=== PATIENT | female | born 1975 | race Two or more races ===

== ENCOUNTER → 2020-08-27 | Outpatient (CLI) | payer OTHER | END | disposition home or self-care (01) | LOC: CFH 12:33 | PROVIDERS: ATTEND Obstetrics & Gynecology | DX: Z12.39 Encounter for other screening for malignant neoplasm of breast (principal); Z12.31 Encounter for screening mammogram for malignant neoplasm of breast | CPT/HCPCS: 76641; 77063; 77067 ==

== ENCOUNTER → 2020-12-11 | Outpatient (CLI) | payer OTHER ==
[~2020-12-11] MED LIST: ASCO1TAB15 PO
[2020-12-11 09:31] LABS: BASOPHILS % (AUTO) 1 % (0-1); EOSINOPHILS % (AUTO) 4 % (1-7); LYMPHOCYTES % (AUTO) 22 % (22-44); MEAN CORPUSCULAR HEMOGLOBIN 28.4 pg (27.0-34.8); MEAN CORPUSCULAR HGB CONC 33.8 g/dL (32.4-35.8); MEAN PLATELET VOLUME 7.9 fL (7.4-10.4); MONOCYTES % (AUTO) 9 % (2-9); NEUTROPHILS % (AUTO) 65 % (42-75); PLATELET COUNT 315 x10^3/uL (130-400); RED CELL DISTRIBUTION WIDTH 13.9 % (9.6-15.2)
[2020-12-11 09:32] LABS: MD NO
[2020-12-11 09:34] LABS: MICROSCOPIC NOT IND
[2020-12-11 09:41] LABS: ALANINE AMINOTRANSFERASE 31 U/L (12-78); ALBUMIN 3.6 g/dL (3.4-5.0); ANION GAP 3 mmol/L (5-15); CALCIUM 8.7 mg/dL (8.5-10.1); CHLORIDE 110 mmol/L (98-107); CREATININE 0.65 mg/dL (0.55-1.02)
[2020-12-11 09:46] LABS: ALKALINE PHOSPHATASE 59 U/L (45-117); BILIRUBIN,TOTAL 0.3 mg/dL (0.2-1.0); TOTAL PROTEIN 7.5 g/dL (6.4-8.2)
== END | disposition home or self-care (01) ==
LOC: STAR 08:35
PROVIDERS: ATTEND Obstetrics & Gynecology
DX: Z01.812 Encounter for preprocedural laboratory examination (principal); N93.9 Abnormal uterine and vaginal bleeding, unspecified; D25.9 Leiomyoma of uterus, unspecified; Z20.822 Contact with and (suspected) exposure to COVID-19
CPT/HCPCS: 36415; 80053; 81003; 84702; 85025; U0003

== ENCOUNTER 2020-12-17 08:37 | Day surgery (SDC) | payer OTHER ==
[~2020-12-17] VITALS: Ht 167.6 cm; Wt 94.8 kg
[~2020-12-17 08:37] MED LIST changes: +BUPIVACAINE/PF 0.25% ONE; +FLUORESCEIN SODIUM 500 MG/5 ML ONE
[2020-12-17 09:21] VITALS: BP 147/94
[2020-12-17 09:28] LABS: HCG UR SG 1.011 (1.003-1.030)
[2020-12-17] MEDS ORDERED: PROMETHAZINE 25 MG/ML, 1ML IVPush PRN (09:30)
[2020-12-17] MEDS ORDERED: ONDANSETRON 2MG/ML, 2ML IVPush PRN (09:30)
[2020-12-17] MEDS ORDERED: HYDROcodone/APAP 7.5-325MG/15ML UDC PO PRN (09:30)
[2020-12-17] MEDS ORDERED: FENTANYL PF 100 MCG/2ML IV PRN (09:30)
[2020-12-17] MEDS ORDERED: LACTATED RINGERS 1,000 ML IV SCH (09:30)
[2020-12-17] MEDS ORDERED: CHLORHEXIDINE 15 ML UDC PO ONE (09:30)
[2020-12-17] MEDS ORDERED: MEPERIDINE/PF 25MG/0.5ML IVPush PRN (09:30)
[2020-12-17] MEDS ORDERED: HYDROmorphone 1 MG/ML, 1ML INJ IVPush PRN (09:30)
[2020-12-17] MEDS ORDERED: OXYcodone 5 MG/5 ML ORAL.SOL UDC PO PRN (09:30)
[2020-12-17] MEDS ORDERED: SCOPOLAMINE 1MG PATCH TD ONE (09:41)
[2020-12-17] MEDS ORDERED: SCOPOLAMINE 1MG PATCH TD STA (09:42)
[2020-12-17] MEDS ORDERED: FENTANYL PF 100 MCG/2ML ONE ×2 (09:43→11:36)
[2020-12-17] MEDS ORDERED: MIDAZOLAM 1 MG/ML, 2ML ONE (09:43)
[2020-12-17] MEDS ORDERED: PROPOFOL 10 MG/ML, 20ML ONE (11:35)
[2020-12-17] MEDS ORDERED: ONDANSETRON 2MG/ML, 2ML ONE (11:35)
[2020-12-17] MEDS ORDERED: CEFAZOLIN 1,000 MG ONE (11:35)
[2020-12-17] MEDS ORDERED: ROCURONIUM 10MG/ML,5ML ONE (11:35)
[2020-12-17] MEDS ORDERED: GLYCOPYRROLATE 0.2MG/1ML, 5ML ONE (11:35)
[2020-12-17] MEDS ORDERED: SUCCINYLCHOLINE 20 MG/ML, 10ML ONE (11:35)
[2020-12-17] MEDS ORDERED: NEOSTIGMINE 1 MG/ML, 10ML ONE (11:35)
[2020-12-17] MEDS ORDERED: DEXAMETHASONE 4 MG/ML, 1ML ONE (11:35)
[2020-12-17] MEDS ORDERED: OXYC-302 PO (11:57)
[2020-12-17] MEDS ORDERED: ACETAMINOPHEN 325 MG TABLET ONE (12:39)
[2020-12-17] MEDS ORDERED: ACETAMINOPHEN 325 MG TABLET PO PRN (13:00)
== END 2020-12-17 14:20 | disposition home or self-care (01) ==
LOC: OUT 08:37
PROVIDERS: ATTEND Obstetrics & Gynecology
DX: N92.0 Excessive and frequent menstruation with regular cycle (principal); N94.6 Dysmenorrhea, unspecified; D25.9 Leiomyoma of uterus, unspecified; N80.0 Endometriosis of uterus; N83.8 Other noninflammatory disorders of ovary, fallopian tube and broad ligament; Z79.899 Other long term (current) drug therapy; Z88.0 Allergy status to penicillin; Z88.2 Allergy status to sulfonamides
CPT/HCPCS: 36415; 58552; 81025; 86850; 86900; 88307; J0330; J0690; J1100; J2250; J2405; J2704; J2710; J3010; J7120